=== PATIENT | male | born 1990 | race Caucasian/White ===

== ENCOUNTER 2017-02-26 18:53 | Emergency (ER) | payer MEDICAID ==
[~2017-02-26] VITALS: Ht 167.6 cm; Wt 71.3 kg
[2017-02-26 19:21] VITALS: BP 125/70
--- NOTE | 2017-02-26 21:24 | NUR ---
TO ER BED OF1
--- NOTE | 2017-02-26 21:25 | NUR ---
26/M [facility] C/O FACIAL PAIN x 4DAYS. PT STATES HE NOTICE A BUMP ON HIS FACE SUNDAY. 05/24 [place]ARP PAIN NON-RADIATING. PT DENIES INJURY OR TRAUMA.DENIES N/V/D; SKIN IS PINK/WARM/DRY; AAOX4 WITH EVEN AND STEADY GAIT; LUNGS CLEAR BL; HR EVEN AND REGULAR; PT DENIES ANY FEVER, CP, SOB, OR COUGH AT THIS TIME; PATIENT VSS; PATIENT POSITIONED FOR COMFORT; HOB ELEVATED; BEDRAILS UP X2; BED DOWN. ER MADE AWARE OF PT STATUS. Addendum: 02/26/17 at 2140 by [facility] PT IN CHAIR NOT IN BED
--- NOTE | 2017-02-26 21:35 | NUR ---
Patient being evaluated by physician.
[2017-02-26 21:45] VITALS: BP 118/74
== END 2017-02-26 21:45 | disposition home or self-care (01) ==
LOC: MED 18:53
DX: R59.0 Localized enlarged lymph nodes (principal); K21.9 Gastro-esophageal reflux disease without esophagitis
CPT/HCPCS: 99283